=== PATIENT | female | born 1995 | race Two or more races ===

== ENCOUNTER 2022-09-26 21:54 | Inpatient (IN) | payer OTHER ==
[~2022-09-26] VITALS: Ht 149.9 cm; Wt 54.4 kg
[~2022-09-26 21:54] MED LIST: IMODIUM A-D2 MG; PHENERGAN25 MG
--- NOTE | 2022-09-26 22:27 | NUR ---
PTE SE OBSERVA CON RASH EN EL PECHO. PTE VERBALIZA QUE LLEVA CON FIEBRE DESDE HACE 6 DONOHUE Y RECIENTEMENTE BURRIS ESTADO USANDO MOTRIN. PTE VERBALIZA QUE TIENE DOLOR DE CUERPO Y ESTA SUDANDO EN EXCESO. PTE SE OBSERVA A/O X4.
--- NOTE | 2022-09-26 22:29 | NUR ---
SE OBSERVA S/S DE POSIBLE DENGUE ESPERAR EVALUACION MEDICA.
--- NOTE | 2022-09-27 01:41 | NUR ---
PACIENTE ALERTA Y ORIENTADA POR REY. SE ORIENTA DE TRATAMIENTO KATHY ORDEN MEDICA. REFIERE ENTENDER. SE WALDEMAR MUESTRAS, SE CANALIZA Y SE ADMINISTRAN MEDICAMENTOS CON MEDIDAS ASEPTICAS CORRESPONDIENTES. SE COLOCA EN FRANCES #6 CON BARANDAS ELEVADAS, ACOMPANADA DE FAMILIAR.
--- NOTE | 2022-09-27 04:36 | NUR ---
SE NOTIFICA A LA . JANA SONOGRAFISTA DE TURNO SONOGRAMA ABDOMINAL ORDENADO POR
--- NOTE | 2022-09-27 07:06 | NUR ---
SE RECIBE PACIENTE DE TURNO ANTERIOR ALERTA Y ORIENTADA EN FRANCES CON BARANDAS ELEVADAS POR SEGURIDAD. PTE CON VENOPUNCION PATENTE Y CODY DE EDEMA BAJANDO 0.9NSS @200ML/HR.PTE PENDIENTE SONOGRAMA ABDOMINAL NOTIFICADA A JANA. PTE PENDIENTE CONSULTA A APARICIO.
== END 2022-10-03 09:19 | disposition home or self-care (01) | DRG 866 ==
LOC: ER 21:54 → MEDI 09-27 12:58
PROVIDERS: ADMIT Internal Medicine; ATTEND Internal Medicine
PROC: BW40ZZZ Ultrasonography of Abdomen (ICD-10-PCS; principal; 2022-09-27)
PROC: BW21YZZ Computerized Tomography (CT Scan) of Abdomen and Pelvis using Other Contrast (ICD-10-PCS; 2022-09-30)
DX: A90 Dengue fever [classical dengue] (principal); D69.6 Thrombocytopenia, unspecified; E86.0 Dehydration; K52.9 Noninfective gastroenteritis and colitis, unspecified